=== PATIENT | female | born 1950 | race Caucasian/White ===

== ENCOUNTER → 2020-04-11 09:57 | Outpatient (CLI) | payer MEDICARE, OTHER, SELFPAY ==
--- NOTE | 2020-04-11 | DI.NM.S_ITS ---
PROCEDURE: NM LAINEY PERF SPECT REST & STR Rest and exercise myocardial perfusion SPECT with gated imaging and ejection fraction RADIOPHARMACEUTICAL: 10.9 mCi Tc-99m sestamibi IV at rest and 25.7 mCi Tc-99m sestamibi IV at peak exercise. A one day-protocol was performed. INDICATIONS: OTHER CHEST PAIN TECHNIQUE: Radiopharmaceutical was injected at peak stress test, and also at rest. SPECT images were obtained. SPECT myocardial perfusion images were displayed in short axis, horizontal long axis, and vertical long axis views. Gated images were reviewed using [employer] software. COMPARISON: None. CARDIAC STRESS: A standard Aidan treadmill exercise tolerance test was performed by the patient under the supervision of an attending staff. The patient exercised for 5 minutes and 29 seconds; functional aerobic impairment (ELIZABETH) is +23%. Hemodynamic data: There is normal blood pressure and heart rate response to exercise stress. Patient achieved 88% of maximum predicted heart rate at peak exercise. Symptoms: Patient denied chest pain during exercise. EKG: Mild horizontal ST depressions in the inferior leads and anterolateral leads with exercise; no ectopy. FINDINGS: Raw data: There is good myocardial labeling by radiotracer. No significant motion artifacts. Ival-po-sdjsw ratio is 0.33 (normal is less than 0.38 for sestamibi tracer, and less than 0.50 for thallium tracer). Left ventricle function: Gated images demonstrate normal left ventricle wall thickening. No segmental wall motion abnormality. No transient ischemic dilation; TID is 0.84 (normal less than 1.3). The left ventricle resting end-diastolic volume is 74 mL. Left ventricle stress ejection fraction is 84%; normal values are above 45%. Myocardial perfusion: There is normal distribution of activity in the left and right ventricular myocardium. No fixed or reversible perfusion defects. IMPRESSION: Low risk, normal treadmill nuclear stress test 1) No perfusion evidence of ischemia or infarction. 2) Normal left ventricular size, wall motion, and systolic function (EF post stress 84%). 3) Mild horizontal ST depressions in the inferior leads and anterolateral leads with exercise. These changes are non-diagnostic in the setting of normal perfusion images. 4) No angina during the study. 5) Reduced exercise tolerance (7.0 METs, ELIZABETH +23%). Target heart rate achieved. Appropriate BP response to exercise. 6) No prior nuclear stress test available for comparison. Dictated by: Dora Joshua MD on 04/11/2020 at 18:06 Approved by: Dora Joshua MD on 04/11/2020 at 18:10
[2020-04-11 11:18] LABS: COVID19 -Nasal RAPID Negative (Negative)
== END ==
PROVIDERS: Radiology Diagnostic Radiology; PCP Student in an Organized Health Care Education/Training Program; Referring Provider Student in an Organized Health Care Education/Training Program; Visit Provider Student in an Organized Health Care Education/Training Program
DX: R07.89 Other chest pain (principal); I10 Essential (primary) hypertension; Z20.822 Contact with and (suspected) exposure to COVID-19
CPT/HCPCS: 78452; 87635; 93017; A9502